=== PATIENT | female | born 1985 | race Caucasian/White ===

== ENCOUNTER 2016-08-22 20:04 | Emergency (ER) | payer MEDICAID ==
[~2016-08-22] VITALS: Ht 152.4 cm; Wt 69.9 kg
[2016-08-22 20:18] VITALS: BP 121/79
== END 2016-08-22 23:18 | disposition home or self-care (01) ==
LOC: ED 23:07
DX: N61.0 Mastitis without abscess (principal)
CPT/HCPCS: 76642